=== PATIENT | female | born 1940 | race Caucasian/White ===

== ENCOUNTER 2023-08-27 16:20 | Emergency (ER) | payer OTHER, SELFPAY ==
[2023-08-27] VITALS (7 sets, daily range): BP systolic 175–221; BP diastolic 62–107; BMI 32.5
--- NOTE | 2023-08-27 18:23 | ED.GENMED ---
History of Present Illness
General
Chief Complaint: Blood Pressure Problem
Source: patient
Time Seen by Provider: 08/27/23 18:13
Travel History
Have you had any contact with someone who has COVID-19?: No
Do you have any symptoms of coronavirus? Fever > 100 degrees, chills, cough, shortness of breath, sore throat, loss of taste or smell, muscle aches, or headache?: No
History of Present Illness
History of Present Illness:
83-year-old female presenting to the emergency department for evaluation of asymptomatic hypertension which she notes she has had the last 2 days with multiple blood pressure readings of systolic week greater than 180. Patient had an epidural this
morning at 830 and at that time she was also noted to be hypertensive but procedure went as planned. She got home and measured her blood pressure twice with systolic measurements of 190. Patient contacted her cardiology office and was recommended
to come to the ER for further evaluation. She denies any current headache, visual disturbances, focal weakness or numbness, chest pain or shortness of breath, abdominal pain, nausea, vomiting or any other concerns presently. She does report good
compliance with her antihypertensive regimen. She notes she has yet to take any of her nighttime medications as she normally takes them before bed around 9 PM.
Past History
Past History
ED Past Medical History: CVA, GERD, HTN, Hypercholesterolemia and IDDM
ED Past Surgical History: None, Cholecystectomy, and Orthopedic
Social History
Tobacco: Non-smoker
Alcohol: None
Drug: None
Personal:
Living: with family
Review of Systems
Review of Systems
All Other Systems: ROS reviewed and negative except as documented in HPI and ROS
Phy Exam
Physical Exam
Physical Exam:
GENERAL: Alert , in no apparent distress
Head: NCAT
EYE: conjunctiva clear
NECK: Supple\\
ENT: o/p clr, mmm.
CARDIAC: Regular rate and rhythm
LUNGS: Clear breath sounds bilaterally, no acute respiratory distress, no wheezes/rales/rhonchi
NEUROLOGICAL: Alert and oriented
SKIN: Warm and dry, skin intact.
MUSCULOSKELETAL: well perfused.
PSYCH: Normal and appropriate interaction.
Scores
Heart Failure Risk
Heart Failure Risk Score: Not Applicable
Heart Score for Chest Pain Patients
STEMI patient?: Not applicable
Withdrawal Assessment of Alcohol
Withdrawal Assessment Completed?: Not applicable
Course
Orders/Labs/Results
Orders:
Orders
08/27/23 18:12
Complete Blood Count/With Diff Urgent
08/27/23 18:19
HydrALAZINE [Apresoline] 25 mg PO NOW STA
NIFEdipine EXTENDED RELEASE [Procardia Xl (Extended Release)] 30 mg PO NOW STA
08/27/23 18:47
Comprehensive Metabolic Panel Urgent
08/27/23 19:11
HydrALAZINE [Apresoline] 10 mg IV NOW STA
08/27/23 19:21
Insulin Aspart [NOVOLOG vial] 11 units SC NOW STA
08/27/23 19:34
Urinalysis Urgent
Date Specimen was Collected: 08/27/23
Time Specimen was Collected: 19:23
Urine Microscopic Urgent
Date Specimen was Collected: 08/27/23
Time Specimen was Collected: 19:23
08/27/23 20:35
Bedside Glucose- Treatment ONCE
Abnormal Lab Results
08/27/23 08/27/23 08/27/23
18:12 18:47 19:34
MPV 12.5 H fL
(7.4-10.4)
Abs Immat Gran (auto) 0.1 H 10^3/uL
(0-0.05)
Absolute Neuts (auto) 7.2 H 10^3/uL
(1.4-6.5)
Absolute Lymphs (auto) 0.5 L 10^3/uL
(1.2-3.4)
Immature Gran % 1.0 H %
(0-0.5)
Neutrophils % 91.4 H %
(42.2-75.2)
Lymphocytes % 6.6 L %
(20.5-51.1)
Monocytes % 0.9 L %
(1.7-9.3)
BUN 22 H mg/dl
(7-17)
Creatinine 0.5 L mg/dL
(0.6-1.0)
Glucose 413 H mg/dl
(70-99)
Total Bilirubin 1.7 H mg/dl
(0.2-1.3)
ALT 50 H U/L
(0-35)
Total Protein 6.1 L g/dl
(6.3-8.2)
Urine Ketones Trace A
(Negative)
Urine Occult Blood Trace A
(Negative)
Urine Bacteria Moderate A
(Negative)
Urine Glucose 3+ A
(Negative)
Urine Albumin 1+ A
(Neg - Trace)
POC Glucose
08/27/23
20:37
MPV
Abs Immat Gran (auto)
Absolute Neuts (auto)
Absolute Lymphs (auto)
Immature Gran %
Neutrophils %
Lymphocytes %
Monocytes %
BUN
Creatinine
Glucose
Total Bilirubin
ALT
Total Protein
Urine Ketones
Urine Occult Blood
Urine Bacteria
Urine Glucose
Urine Albumin
POC Glucose 378 H mg/dl
(70-99)
08/27/23 18:12
08/27/23 18:47
Vital Signs
Initial and Last Documented VS:
Initial Vital Signs
Temp Pulse Resp BP Pulse Ox
98.4 F 91 18 216/107 99
08/27/23 16:34 08/27/23 16:34 08/27/23 16:34 08/27/23 16:34 08/27/23 16:34
Last Documented Vital Signs
Temp Pulse Resp BP Pulse Ox
98.4 F 84 17 175/62 95
08/27/23 16:34 08/27/23 20:45 08/27/23 20:45 08/27/23 20:30 08/27/23 20:45
MDM/Problems Addressed
Differential Diagnosis Includes:
Asymptomatic hypertension, hypertensive urgency/malignant hypertension, at present time patient is not exhibiting any symptoms that would be consistent with endorgan dysfunction
MDM/Problems Addressed:
83-year-old female presenting to the emergency department for evaluation of asymptomatic hypertension. Over the last 2 days patient has had multiple readings at home with systolic greater than 180. On arrival to the ER here she has noted to be
significantly hypertensive at 216/107. At time of my exam in patient's room her blood pressure is now 198/87. She she reports no symptoms. Lab work was initiated. Will treat patient with dose of her nifedipine and hydralazine. Will continue to
monitor.
Chronic conditions affecting care: HTN
Acute Exacerbation and/or Progression of Chronic Illness: HTN
*Pulse Oximetry
Patient hypoxic: no
*Critical Care Note
Total Time (30-74mins, 75-104mins- exclusive of procedures): Not Applicable
Data Reviewed
Review of Other/Old Records Reveals: Labs, Records and Testing
Source: patient and records
Comment
Comment:
March of 2022 patient had a cardiac catheterization and was ultimately admitted following this due to persistent hypertension/hypertensive urgency. At that time she needed to go on a nicardipine drip which was ultimately weaned off and they
added Procardia 30 mg daily and was ultimately able to be discharged home the following day.
Patient Management
Escalation/DeEscalation of care consider admission/obs:
On multiple rechecks patient's blood pressure is improved albeit still somewhat elevated. Her blood sugar on her CMP came back elevated at 413 which is likely elevated due to her epidural injection today. We treated patient with an additional 10
mg of hydralazine IV and 11 units subcutaneous insulin. Fingerstick improved. Patient remains without any symptoms. Stable for discharge home and she will contact her delivery technician for follow-up tomorrow.
ED Attending Note
-
Portions of this chart may have been created with voice recognition software.� Occasional wrong word or��sound alike� substitutions may have occurred due to the inherent limitations of voice recognition software.
Discharge Plan
Departure
Patient Disposition: Home (Routine Discharge)
Date of Disposition: 08/27/23
Time of Disposition: 20:51
Patient with high blood pressure during this ER visit?: Yes
Discharge Problem:
Hypertension, Hyperglycemia
Instructions: High Blood Pressure (DC)
Prescriptions:
No Action
insulin glargine [Lantus Solostar U-100 Insulin] 300 UNITS/3 ML insulin pen
24 units SC HS
atorvastatin 40 MG tablet
40 mg PO QPM
carvedilol 12.5 MG tablet
12.5 mg PO BID
gabapentin 400 MG capsule
400 mg PO HS
glipizide 5 MG tablet extended release 24hr
5 mg PO DAILY
hydralazine 100 mg Tablet
100 mg PO BID
tramadol 50 mg Tablet
50 mg PO Q6H PRN (Reason: pain)
hydroxychloroquine 100 mg Tablet
100 mg PO BID
aspirin 81 mg Tablet,Chewable
81 mg PO DAILY
nifedipine [Procardia XL] 30 mg tablet extended release 24hr
30 mg PO DAILY Qty: 30 3RF
valsartan 160 mg tablet
160 mg PO DAILY Qty: 1 0RF
Rx Instructions:
continue your usual valsartan dosing
Referrals:
UNKNOWN - PT DOES,NOT KNOW [Unknown Provider] -
Interventions
Interventions:
*Risk Screen - Suicide Last Done: 08/27/23 16:34
*General Assessment Last Done: 08/27/23 21:05
*Neglect/Abuse Screening Last Done: 08/27/23 16:34
ED- Fall Risk Assessment Last Done: 08/27/23 16:34
*ED COVID-19 Vaccine History Last Done: 08/27/23 21:05
*Nursing Disposition Last Done: 08/27/23 21:05
ED- Cardiac Assessment Last Done: 08/27/23 18:15
ED- Neurological Assessment Last Done: 08/27/23 18:15
ED- Pulmonary Assessment Last Done: 08/27/23 18:15
Discharge Date and Time
Discharge Date/Time: 08/27/23 21:05
Print Language: ETHIOPIAN
[2023-08-27] MEDS: APRESOLINE 25 MG PO (18:26)
[2023-08-27] MEDS: PROCARDIA XL (EXTENDED RELEASE) 30 MG PO (18:26)
[2023-08-27 18:31] LABS: % Basophils 0.1 % (0-2); % Lymphocytes 6.6 % (20.5-51.1); % Monocytes 0.9 % (1.7-9.3); % Neutrophils 91.4 % (42.2-75.2); Absolute Immature Granulocytes 0.1 10^3/uL (0-0.05); Absolute Lymphocytes 0.5 10^3/uL (1.2-3.4); Absolute Monocytes 0.1 10^3/uL (0.1-0.6); Absolute Neutrophils 7.2 10^3/uL (1.4-6.5); Hematocrit 40.5 % (37.0-47.0); Hemoglobin 14.2 g/dL (12.0-16.0); Mean Corp Hgb Conc. 35.1 g/dL (33.0-37.0); Mean Corpuscular Hgb 29.6 pg (27.0-31.0); Mean Corpuscular Volume 84.6 fL (81.0-99.0); Mean Platelet Volume 12.5 fL (7.4-10.4); Nucleated Red Blood Cells % 0 %; Platelet Count 200 10^3/uL (130-400); Red Blood Cell Count 4.79 10^6/uL (4.20-5.40); White Blood Cell Count 7.9 10^3/uL (4.8-10.8)
[2023-08-27] MEDS: APRESOLINE 10 MG IV (19:14)
[2023-08-27 19:18] LABS: ALT (SGPT) 50 U/L (0-35); AST (SGOT) 33 U/L (14-36); Alkaline Phosphatase 92 U/L (38-126); Blood Urea Nitrogen 22 mg/dl (7-17); Calcium 9.6 mg/dl (8.4-10.2); Carbon Dioxide 28 mmol/L (22-30); Chloride 101 mmol/L (98-107); Estimated Creatinine Clearance 65 ml/min; Glucose 413 mg/dl (70-99); Potassium 4.7 mmol/L (3.5-5.1); Sodium 135 mmol/L (135-145); Total Bilirubin 1.7 mg/dl (0.2-1.3); Total Protein 6.1 g/dl (6.3-8.2); eGFR > 60.00
[2023-08-27] MEDS: NOVOLOG vial 11 UNITS SC (19:25)
[2023-08-27 19:40] LABS: Urine Albumin 1+ (Neg - Trace); Urine Bilirubin Negative (Negative); Urine Character Clear (Clear); Urine Color Yellow; Urine Glucose 3+ (Negative); Urine Ketone Trace (Negative); Urine Leukocyte Negative (Negative); Urine Nitrite Negative (Negative); Urine Occult Blood Trace (Negative); Urine Urobilinogen Negative (Neg - 1+); Urine pH 6.5 (5.0-9.0)
[2023-08-27 19:52] LABS: Urine Bacteria Moderate (Negative); Urine Red Blood Cell 0-2 /HPF (0-2)
[2023-08-27 20:38] LABS: Glucose - Point of Care 378 mg/dl (70-99)
== END 2023-08-27 21:05 | disposition home or self-care (01) ==
LOC: EMR 16:20
PROVIDERS: Physician Assistant Medical; EMERGENCY PHYSICIAN Emergency Medicine; FAMILY PHYSICIAN Family Medicine
DX: I10 Essential (primary) hypertension (principal); E11.65 Type 2 diabetes mellitus with hyperglycemia; K21.9 Gastro-esophageal reflux disease without esophagitis; E78.00 Pure hypercholesterolemia, unspecified; Z86.73 Personal history of transient ischemic attack (TIA), and cerebral infarction without residual deficits; Z98.890 Other specified postprocedural states; Z79.4 Long term (current) use of insulin; Z79.82 Long term (current) use of aspirin; Z90.49 Acquired absence of other specified parts of digestive tract; Z79.899 Other long term (current) drug therapy; Z88.5 Allergy status to narcotic agent; Z88.8 Allergy status to other drugs, medicaments and biological substances
CPT/HCPCS: 99284; 96374; 96372; 80053; 81003; 81015; 82962; 85025; 93005

== ENCOUNTER → 2023-09-19 12:55 | Outpatient (REF) | payer OTHER, SELFPAY | LOC: DHVS 12:55 | PROVIDERS: ATTENDING PHYSICIAN Surgery Vascular Surgery; FAMILY PHYSICIAN Family Medicine | DX: I73.9 Peripheral vascular disease, unspecified (principal) | CPT/HCPCS: 93922; 93925 ==

== ENCOUNTER → 2023-09-23 08:50 | Outpatient (REF) | payer OTHER, SELFPAY | LOC: RAD 08:50 | PROVIDERS: ATTENDING PHYSICIAN Nurse Practitioner Family; FAMILY PHYSICIAN Family Medicine | DX: K59.1 Functional diarrhea (principal) | CPT/HCPCS: 74018 ==

== ENCOUNTER → 2023-10-08 10:51 | Outpatient (REF) | payer OTHER, SELFPAY | LOC: HWRCS 10:51 | PROVIDERS: ATTENDING PHYSICIAN Nurse Practitioner; FAMILY PHYSICIAN Family Medicine | DX: I35.0 Nonrheumatic aortic (valve) stenosis (principal) | CPT/HCPCS: 93306 ==

== ENCOUNTER → 2023-11-03 11:06 | Outpatient (REF) | payer OTHER, SELFPAY | LOC: RAD 11:06 | PROVIDERS: ATTENDING PHYSICIAN Physician Assistant Surgical; FAMILY PHYSICIAN Family Medicine | DX: M48.062 Spinal stenosis, lumbar region with neurogenic claudication (principal); M54.16 Radiculopathy, lumbar region | CPT/HCPCS: 93971 ==

== ENCOUNTER → 2023-12-29 07:00 | Outpatient (REF) | payer OTHER, SELFPAY | LOC: MRI 07:00 | PROVIDERS: ATTENDING PHYSICIAN Orthopaedic Surgery; FAMILY PHYSICIAN Family Medicine | DX: M54.16 Radiculopathy, lumbar region (principal) | CPT/HCPCS: 72148 ==

== ENCOUNTER → 2024-02-18 14:19 | Outpatient (REF) | payer OTHER, SELFPAY | LOC: RAD 14:19 | PROVIDERS: ATTENDING PHYSICIAN Nurse Practitioner; FAMILY PHYSICIAN Family Medicine | DX: R60.0 Localized edema (principal) | CPT/HCPCS: 93970 ==

== ENCOUNTER → 2024-04-19 08:58 | Outpatient (REF) | payer OTHER, SELFPAY | LOC: RAD 08:58 | PROVIDERS: ATTENDING PHYSICIAN Nurse Practitioner; FAMILY PHYSICIAN Family Medicine | DX: K21.9 Gastro-esophageal reflux disease without esophagitis (principal) | CPT/HCPCS: 74221 ==

== ENCOUNTER → 2024-06-07 14:32 | Outpatient (REF) | payer OTHER, SELFPAY | LOC: HWRAD 14:32 | PROVIDERS: ATTENDING PHYSICIAN Internal Medicine Rheumatology; FAMILY PHYSICIAN Family Medicine; REFERRING PHYSICIAN Physician Assistant | DX: M81.0 Age-related osteoporosis without current pathological fracture (principal); M17.0 Bilateral primary osteoarthritis of knee | CPT/HCPCS: 73564; 77080 ==

== ENCOUNTER 2024-06-10 12:39 | Emergency (ER) | payer OTHER, SELFPAY ==
[2024-06-10 12:45] VITALS: BP 200/98
[2024-06-10 13:08] LABS: % Basophils 0.4 % (0-2); % Eosinophils 1.2 % (0-6); % Immature Granulocytes 0.4 % (0-0.5); % Lymphocytes 19.5 % (20.5-51.1); % Neutrophils 71.5 % (42.2-75.2); Absolute Eosinophils 0.1 10^3/uL (0-0.7); Absolute Lymphocytes 1.5 10^3/uL (1.2-3.4); Absolute Monocytes 0.5 10^3/uL (0.1-0.6); Absolute Neutrophils 5.4 10^3/uL (1.4-6.5); Hematocrit 38.1 % (37.0-47.0); Hemoglobin 13.3 g/dL (12.0-16.0); Mean Corp Hgb Conc. 34.9 g/dL (33.0-37.0); Mean Corpuscular Hgb 30.4 pg (27.0-31.0); Mean Platelet Volume 11.4 fL (7.4-10.4); Nucleated Red Blood Cells % 0 %; Platelet Count 163 10^3/uL (130-400); Red Blood Cell Count 4.38 10^6/uL (4.20-5.40); Red Cell Dist. Width 12.8 % (11.5-14.5); White Blood Cell Count 7.5 10^3/uL (4.8-10.8)
[2024-06-10 13:21] LABS: ALT (SGPT) 51 U/L (0-35); AST (SGOT) 32 U/L (14-36); Albumin 4.3 g/dl (3.5-5.0); Alkaline Phosphatase 85 U/L (38-126); Blood Urea Nitrogen 32 mg/dl (7-17); Calcium 10.1 mg/dl (8.4-10.2); Carbon Dioxide 29 mmol/L (22-30); Chloride 103 mmol/L (98-107); Glucose 188 mg/dl (70-99); Potassium 4.1 mmol/L (3.5-5.1); Sodium 140 mmol/L (135-145); Total Bilirubin 2.1 mg/dl (0.2-1.3); Total Protein 6.5 g/dl (6.3-8.2); eGFR > 60.00
[2024-06-10 13:33] LABS: Troponin I < 0.012 ng/ml
[2024-06-10 14:20] VITALS: BP 248/62
[2024-06-10 14:23] VITALS: BMI 28.9
[2024-06-10] MEDS: LASIX 20 MG PO (14:33)
[2024-06-10] MEDS: GLUCOTROL 5 MG PO (14:33)
[2024-06-10] MEDS: APRESOLINE 50 MG PO (14:33)
[2024-06-10] MEDS: COREG 12.5 MG PO (14:33)
[2024-06-10 15:00] VITALS: BP 211/65
[2024-06-10] MEDS: DIOVAN 160 MG PO (15:43)
--- NOTE | 2024-06-10 15:48 | ED.GENMED ---
History of Present Illness
General
Chief Complaint: Chest Pain
Time Seen by Provider: 06/10/24 14:12
History of Present Illness
History of Present Illness:
84-year-old female presents the emergency department for evaluation of chest pain and mild shortness of breath that began approximately 30 minutes prior to arrival. She states she was driving at the time. She admits to forgetting to take her
medications this morning. Pain persist at this time but is quite mild. No pleuritic pain, headache, vision changes, neck pain, or leg swelling.
Past History
Past History
ED Past Medical History: CVA, GERD, HTN, Hypercholesterolemia and IDDM
ED Past Surgical History: None, Cholecystectomy, and Orthopedic
Social History
Tobacco: Non-smoker
Alcohol: None
Drug: None
Personal:
Living: with family
Review of Systems
Review of Systems
Allergies reviewed?: Yes
All Other Systems: ROS reviewed and negative except as documented in HPI and ROS
Phy Exam
Physical Exam
Physical Exam:
GEN: Well appearing, NAD, WDWN
Eyes: PERRLA, EOMs intact, no scleral icterus
HENT: NCAT, oral mucosa moist, no JVD, no cervical adenopathy.
Lungs: CTAB, no wheezes, rales, rhonchi, normal chest wall excursion
Cardiac: RRR, no M/R/G, no peripheral edema. Radial pulses 2+ bilat
Abdomen: S, NT, ND, NABS, no masses or hepatosplenomegaly
Neuro: AO x 3, no focal deficits to BUE/BLE, normal sensation throughout
MSK: No gross deformity or ecchymosis. No edema. No digital clubbing
Skin: No rashes, petechiae. Normal color, no pallor or jaundice.
Psych: Calm, cooperative, proper hygiene
Scores
Heart Score for Chest Pain Patients
STEMI patient?: No
History: Slightly or Non-Suspicious
ECG: Normal
Age: >/= 65 years
Risk Factors: >/= 3 Risk Factors or History of CAD
Troponin: </= Normal Limit
Heart Score for Chest Pain Patients: 4
Heart Score Risk: 20.3% MACE over next 6 weeks
Course
Orders/Labs/Results
Orders:
Orders
06/10/24 12:39
Electrocardiogram (*1) Urgent
Reason for Study: Chest Pain
EKG- Treatment ONCE
06/10/24 12:54
Complete Blood Count/With Diff Urgent
Comprehensive Metabolic Panel Urgent
Troponin I Urgent
06/10/24 14:24
EKG- Treatment ONCE
Carvedilol [Coreg] 12.5 mg PO NOW STA
Furosemide [Lasix] 20 mg PO NOW STA
GlipiZIDE [Glucotrol] 5 mg PO NOW STA
HydrALAZINE [Apresoline] 50 mg PO NOW STA
Valsartan [Diovan] 160 mg PO NOW STA
06/10/24 14:32
Valsartan [Diovan] 160 mg PO NOW STA
06/10/24 15:53
Troponin I Urgent
06/10/24 16:00
Electrocardiogram (*1) Urgent
Reason for Study: Chest Pain
Abnormal Lab Results
06/10/24
12:54
MPV 11.4 H fL
(7.4-10.4)
Lymphocytes % 19.5 L %
(20.5-51.1)
BUN 32 H mg/dl
(7-17)
Glucose 188 H mg/dl
(70-99)
Total Bilirubin 2.1 H mg/dl
(0.2-1.3)
ALT 51 H U/L
(0-35)
06/10/24 12:54
06/10/24 12:54
Vital Signs
Initial and Last Documented VS:
Initial Vital Signs
Temp Pulse Resp BP Pulse Ox
98.0 F 78 16 200/98 98
06/10/24 12:45 06/10/24 12:45 06/10/24 12:45 06/10/24 12:45 06/10/24 12:45
Last Documented Vital Signs
Temp Pulse Resp BP Pulse Ox
98.0 F 68 23 142/54 100
06/10/24 12:45 06/10/24 17:15 06/10/24 17:15 06/10/24 16:00 06/10/24 17:06
MDM/Problems Addressed
MDM/Problems Addressed:
Likely a brief hypertensive urgency on the basis of critical hypertension and patient's medication noncompliance this morning. She was given her routine medications and observed, repeat troponin also reassuring and blood pressure markedly improved.
She is asymptomatic at time of discharge
*Critical Care Note
Total Time (30-74mins, 75-104mins- exclusive of procedures): Not Applicable
ED Attending Note
-
Portions of this chart may have been created with voice recognition software.� Occasional wrong word or��sound alike� substitutions may have occurred due to the inherent limitations of voice recognition software.
Discharge Plan
Departure
Patient Disposition: Home (Routine Discharge)
Date of Disposition: 06/10/24
Time of Disposition: 17:09
Patient with high blood pressure during this ER visit?: No
Discharge Problem:
Hypertensive crisis
Instructions: High blood pressure emergencies
Prescriptions:
No Action
insulin glargine [Lantus Solostar U-100 Insulin] 300 UNITS/3 ML insulin pen
24 units SC HS
atorvastatin 40 MG tablet
40 mg PO QPM
carvedilol 12.5 MG tablet
12.5 mg PO BID
gabapentin 400 MG capsule
400 mg PO HS
glipizide 5 MG tablet extended release 24hr
5 mg PO DAILY
hydralazine 100 mg Tablet
100 mg PO BID
tramadol 50 mg Tablet
50 mg PO Q6H PRN (Reason: pain)
hydroxychloroquine 100 mg Tablet
100 mg PO BID
aspirin 81 mg Tablet,Chewable
81 mg PO DAILY
nifedipine [Procardia XL] 30 mg tablet extended release 24hr
30 mg PO DAILY Qty: 30 3RF
valsartan 160 mg tablet
160 mg PO DAILY Qty: 1 0RF
Rx Instructions:
continue your usual valsartan dosing
Referrals:
Joaquín Gallardo DO [Family Provider] -
Interventions
Interventions:
*Risk Screen - Suicide Last Done: 06/10/24 12:45
*General Assessment Last Done: 06/10/24 14:24
*Neglect/Abuse Screening Last Done: 06/10/24 12:45
*ED- Fall Risk Assessment Last Done: 06/10/24 14:24
*ED COVID-19 Vaccine History Last Done: 06/10/24 14:24
*Nursing Disposition Last Done: 06/10/24 17:16
ED- Cardiac Assessment Last Done: 06/10/24 14:23
Discharge Date and Time
Discharge Date/Time: 06/10/24 17:26
Print Language: AFGHAN
[2024-06-10 16:00] VITALS: BP 142/54
[2024-06-10 16:26] LABS: Troponin I < 0.012 ng/ml
== END 2024-06-10 17:26 | disposition home or self-care (01) ==
LOC: EMR 12:39
PROVIDERS: Physician Assistant; EMERGENCY PHYSICIAN Emergency Medicine; FAMILY PHYSICIAN Family Medicine
DX: I16.9 Hypertensive crisis, unspecified (principal); E78.00 Pure hypercholesterolemia, unspecified; I25.10 Atherosclerotic heart disease of native coronary artery without angina pectoris; K21.9 Gastro-esophageal reflux disease without esophagitis; Z86.73 Personal history of transient ischemic attack (TIA), and cerebral infarction without residual deficits; E11.9 Type 2 diabetes mellitus without complications; Z79.4 Long term (current) use of insulin; Z90.49 Acquired absence of other specified parts of digestive tract
CPT/HCPCS: 99284; 80053; 84484; 85025; 93005

== ENCOUNTER 2024-06-20 18:06 | Emergency (ER) | payer OTHER, SELFPAY ==
[2024-06-20 18:26] VITALS: BP 200/89
[2024-06-20 18:52] LABS: % Basophils 0.6 % (0-2); % Immature Granulocytes 0.3 % (0-0.5); % Lymphocytes 13.7 % (20.5-51.1); % Monocytes 4.8 % (1.7-9.3); % Neutrophils 79.6 % (42.2-75.2); Absolute Basophils 0.1 10^3/uL (0-0.2); Absolute Eosinophils 0.1 10^3/uL (0-0.7); Absolute Lymphocytes 1.4 10^3/uL (1.2-3.4); Absolute Monocytes 0.5 10^3/uL (0.1-0.6); Absolute Neutrophils 8.1 10^3/uL (1.4-6.5); Hematocrit 36.8 % (37.0-47.0); Hemoglobin 13.6 g/dL (12.0-16.0); Mean Corpuscular Hgb 30.9 pg (27.0-31.0); Mean Corpuscular Volume 83.6 fL (81.0-99.0); Mean Platelet Volume 11.7 fL (7.4-10.4); Nucleated Red Blood Cells % 0 %; Platelet Count 144 10^3/uL (130-400); Red Cell Dist. Width 12.7 % (11.5-14.5); White Blood Cell Count 10.1 10^3/uL (4.8-10.8)
[2024-06-20 19:01] LABS: INR 0.95
[2024-06-20 19:12] LABS: ALT (SGPT) 62 U/L (0-35); AST (SGOT) 44 U/L (14-36); Albumin 4.2 g/dl (3.5-5.0); Alkaline Phosphatase 71 U/L (38-126); Blood Urea Nitrogen 25 mg/dl (7-17); Calcium 9.7 mg/dl (8.4-10.2); Carbon Dioxide 24 mmol/L (22-30); Chloride 104 mmol/L (98-107); Glucose 223 mg/dl (70-99); Sodium 138 mmol/L (135-145); Total Bilirubin 2.1 mg/dl (0.2-1.3); Total Protein 6.5 g/dl (6.3-8.2); eGFR > 60.00
[2024-06-20 19:16] LABS: Troponin I 0.015 ng/ml
[2024-06-20 20:50] VITALS: BP 210/78
[2024-06-20 21:00] VITALS: BP 187/70
[2024-06-20] MEDS: NSS 500 IV (21:40)
--- NOTE | 2024-06-20 21:42 | ED.GENMED ---
History of Present Illness
General
Chief Complaint: Dizziness
Source: patient
Exam Limitations: none
Time Seen by Provider: 06/20/24 21:12
History of Present Illness
History of Present Illness:
84-year-old female presents for evaluation of lightheadedness dizziness headache and arm heaviness. Symptoms have been ongoing for quite some time. Today she was standing making soup and she felt lightheaded like she was going to pass out. She
sat down shortly after this her right arm felt heavy. There is no chest pain. She has known aortic stenosis. She also complains of a headache mostly on the right side. She also describes intermittent spots of vision that she loses out of her
left eye. No neck pain. There has been no noticed slurred speech or facial asymmetry by the family. She denies any leg symptoms. No fevers. No other complaints at this time
Past History
Past History
ED Past Medical History: CVA, GERD, HTN, Hypercholesterolemia and IDDM
ED Past Surgical History: None, Cholecystectomy, and Orthopedic
Social History
Tobacco: Non-smoker
Alcohol: None
Drug: None
Personal:
Living: with family
Phy Exam
Physical Exam
Physical Exam:
General: Well-appearing female no acute respiratory distress
HEENT: Normocephalic atraumatic pupils equal round reactive to light extraocular motions intact no nystagmus face is symmetric
Heart: Regular rate and rhythm no murmurs
Lungs: Clear no wheeze
Neurologic exam: Alert and oriented no facial asymmetry no drift finger-nose intact [id number] intact. No dysarthria or aphasia. Good strength to the upper and lower extremities
Abdomen is soft nontender nondistended no guarding or rebound
Course
Orders/Labs/Results
Orders:
Orders
06/20/24 18:29
EKG [Electrocardiogram (*1)] Urgent
Reason for Study: Vertigo / Dizzy
CT Head W/o Iv Contrast Urgent
Comment:
Reason For Exam: dizziness
EKG- Treatment ONCE
06/20/24 18:40
Complete Blood Count/With Diff Urgent
Comprehensive Metabolic Panel Urgent
Erythrocyte Sed Rate Urgent
Comment: ADD ON
Prothrombin Time Urgent
Troponin I Urgent
06/20/24 21:36
Add On- LAB Urgent
Tests Added?: sed rate
0.9% Sodium Chloride 500 ml [Nss] 500 ml IV BOLUS
06/20/24 21:58
Acetaminophen [Tylenol] 650 mg PO NOW STA
Abnormal Lab Results
06/20/24
18:40
Hct 36.8 L %
(37.0-47.0)
MPV 11.7 H fL
(7.4-10.4)
Absolute Neuts (auto) 8.1 H 10^3/uL
(1.4-6.5)
Neutrophils % 79.6 H %
(42.2-75.2)
Lymphocytes % 13.7 L %
(20.5-51.1)
BUN 25 H mg/dl
(7-17)
Glucose 223 H mg/dl
(70-99)
Total Bilirubin 2.1 H mg/dl
(0.2-1.3)
AST 44 H U/L
(14-36)
ALT 62 H U/L
(0-35)
06/20/24 18:40
06/20/24 18:40
Vital Signs
Initial and Last Documented VS:
Initial Vital Signs
Temp Pulse Resp BP Pulse Ox
98.7 F 92 17 200/89 99
06/20/24 18:26 06/20/24 18:26 06/20/24 18:26 06/20/24 18:26 06/20/24 18:26
Last Documented Vital Signs
Temp Pulse Resp BP Pulse Ox
98.7 F 92 19 187/70 100
06/20/24 18:26 06/20/24 18:26 06/20/24 20:43 06/20/24 21:00 06/20/24 21:15
MDM/Problems Addressed
Differential Diagnosis Includes:
Patient with vague symptoms of headache visual change right arm heaviness. Exam and history not consistent with strokelike symptoms given the involvement of both sides. CT of the head was ordered through triage which is negative. Labs all
reviewed without significant finding. Patient does describe some diarrhea today question mild volume depletion. Will give small fluid bolus. Patient is already taking aspirin and a statin. Even if these were TIA-like symptoms she is already
medically treated for this. Again history and exam not consistent with TIA. Also question atypical migraine as source of patient's symptoms.
*Critical Care Note
Total Time (30-74mins, 75-104mins- exclusive of procedures): Not Applicable
Update Note
Update Note:
Patient reevaluated still nontoxic in appearance exam nonfocal not consistent with CVA. She did have some diarrhea today question possible volume depletion or atypical migraine. She was hydrated here sed rate is normal do not suspect temporal
arteritis. No indication for admission for discharge
ED Attending Note
-
Portions of this chart may have been created with voice recognition software.� Occasional wrong word or��sound alike� substitutions may have occurred due to the inherent limitations of voice recognition software.
Discharge Plan
Departure
Patient Disposition: Home (Routine Discharge)
Date of Disposition: 06/20/24
Time of Disposition: 22:58
Patient with high blood pressure during this ER visit?: No
Discharge Problem:
Lightheadedness
Instructions: Dizziness
Prescriptions:
No Action
insulin glargine [Lantus Solostar U-100 Insulin] 300 UNITS/3 ML insulin pen
24 units SC HS
atorvastatin 40 MG tablet
40 mg PO QPM
carvedilol 12.5 MG tablet
12.5 mg PO BID
gabapentin 400 MG capsule
400 mg PO HS
glipizide 5 MG tablet extended release 24hr
5 mg PO DAILY
hydralazine 100 mg Tablet
100 mg PO BID
tramadol 50 mg Tablet
50 mg PO Q6H PRN (Reason: pain)
hydroxychloroquine 100 mg Tablet
100 mg PO BID
aspirin 81 mg Tablet,Chewable
81 mg PO DAILY
nifedipine [Procardia XL] 30 mg tablet extended release 24hr
30 mg PO DAILY Qty: 30 3RF
valsartan 160 mg tablet
160 mg PO DAILY Qty: 1 0RF
Rx Instructions:
continue your usual valsartan dosing
Referrals:
Joaquín Gallardo, DO [Family Provider] -
Activity Restrictions/Additional Instructions:
Stay hydrated. Please return for worsening symptoms otherwise follow-up with your doctor
Interventions
Interventions:
*Risk Screen - Suicide Last Done: 06/20/24 18:28
*General Assessment Last Done: 06/20/24 18:28
*Neglect/Abuse Screening Last Done: 06/20/24 18:28
*ED- Fall Risk Assessment Last Done: 06/20/24 20:54
*ED COVID-19 Vaccine History Last Done: 06/20/24 18:28
ED- Neurological Assessment Last Done: 06/20/24 20:53
ED- Cardiac Assessment Last Done: 06/20/24 20:53
Discharge Date and Time
Print Language: WELSH
[2024-06-20] MEDS: TYLENOL 650 MG PO (22:04)
[2024-06-20 22:08] LABS: Erythrocyte Sed Rate 7 mm/hour (0-20)
== END 2024-06-20 23:15 | disposition home or self-care (01) ==
LOC: EMR 18:06
PROVIDERS: EMERGENCY PHYSICIAN Emergency Medicine; FAMILY PHYSICIAN Family Medicine
DX: R42 Dizziness and giddiness (principal); R51.9 Headache, unspecified; H53.8 Other visual disturbances; I35.0 Nonrheumatic aortic (valve) stenosis; I10 Essential (primary) hypertension; E78.00 Pure hypercholesterolemia, unspecified; E11.9 Type 2 diabetes mellitus without complications; Z79.82 Long term (current) use of aspirin; Z88.5 Allergy status to narcotic agent; Z88.8 Allergy status to other drugs, medicaments and biological substances; Z90.49 Acquired absence of other specified parts of digestive tract
CPT/HCPCS: 99284; 96360; 70450; 80053; 84484; 85025; 85610; 85652; 93005

== ENCOUNTER → 2024-12-17 10:54 | Outpatient (REF) | payer OTHER, SELFPAY | LOC: DHVS 10:54 | PROVIDERS: ATTENDING PHYSICIAN Surgery Vascular Surgery; FAMILY PHYSICIAN Family Medicine | DX: I73.9 Peripheral vascular disease, unspecified (principal) | CPT/HCPCS: 93922; 93925 ==